=== PATIENT | male | born 1955 | race Asian ===

== ENCOUNTER 2018-12-26 07:56 | Inpatient (IN) | payer OTHER ==
[~2018-12-26] VITALS: Ht 172.7 cm; Wt 72.8 kg
[2018-12-26 07:59] VITALS: Ht 172.7 cm; Wt 72.8 kg
[2018-12-26 11:04] LABS: BASOPHIL % 0.5 % (0-2); PLATELET COUNT 228 x10^3mcL (130-400); RED CELL DISTRIBUTION WIDTH 13.5 % (11.5-14.5)
[2018-12-26] MEDS ORDERED: METOPROLOL SUCC50 M2 PO (11:47)
[2018-12-26] MEDS ORDERED: LIPI20 PO (11:47)
[2018-12-26] MEDS ORDERED: LOSARTAN POTASS50 M1 PO (11:48)
[2018-12-26] MEDS ORDERED: NITROSTAT0.4 MG SL (11:48)
[2018-12-26 11:53] LABS: CALCIUM 8.2 mg/dL (8.5-10.1); CARBON DIOXIDE 25.6 mmol/L (21-32); CHLORIDE SERUM 106 mmol/L (98-107); CREATININE SERUM 0.9 mg/dL (0.7-1.3); GFR1 > 60 mL/min; GLUCOSE SERUM 204 mg/dL (74-106); POTASSIUM SERUM 4.2 mmol/L (3.5-5.1); SODIUM SERUM 141 mmol/L (136-145)
[2018-12-26 11:58] LABS: ALBUMIN 3.5 g/dL (3.4-5.0); ALKALINE PHOSPHATASE 85 U/L (46-116); ALT/SGPT 21 U/L (16-63); AST/SGOT 12 U/L (15-37); BILIRUBIN TOTAL 0.3 mg/dL (0.20-1.00); TOTAL PROTEIN, SERUM 6.9 g/dL (6.4-8.2)
[2018-12-26 12:20] LABS: T3 TOTAL 1.38 ng/mL
[2018-12-26 12:32] LABS: CHOLESTEROL 167 mg/dL (<200); PHOSPHOROUS 2.7 mg/dL (2.5-4.9)
[2018-12-26 12:35] LABS: CHOLESTEROL/HDL RATIO 6.2; HDL CHOLESTEROL 27 mg/dL (40-60); TRIGLYCERIDES 503 mg/dL (<150)
[2018-12-26 12:42] LABS: FREE T4 0.73 ng/dL (0.76-1.46); FREE THYROXINE INDEX 2.1 ug/dL (1.4-4.5); T4(THYROXINE) 6.9 ug/dL (4.7-13.3)
[2018-12-26 13:30] VITALS: BP 123/76
[2018-12-26 16:38] VITALS: BP 126/86
[2018-12-26 19:45] VITALS: BP 118/87
[2018-12-27 05:07] VITALS: BP 114/69
[2018-12-27 06:45] LABS: CALCIUM 8.2 mg/dL (8.5-10.1); CHLORIDE SERUM 109 mmol/L (98-107); CREATININE SERUM 0.9 mg/dL (0.7-1.3); GFR1 > 60 mL/min; GLUCOSE SERUM 134 mg/dL (74-106); MAGNESIUM 2.1 mg/dL (1.8-2.4); PHOSPHOROUS 3.9 mg/dL (2.5-4.9); POTASSIUM SERUM 4.1 mmol/L (3.5-5.1); SODIUM SERUM 144 mmol/L (136-145)
[2018-12-27 07:08] LABS: BASOPHIL % 0.4 % (0-2); PLATELET COUNT 219 x10^3mcL (130-400)
[2018-12-27 09:23] VITALS: BP 138/78
[2018-12-27 13:53] VITALS: BP 123/80
[2018-12-27 16:32] VITALS: BP 124/82
[2018-12-27 19:15] VITALS: BP 119/72
[2018-12-28 05:19] VITALS: BP 119/73
[2018-12-28 06:19] LABS: BASOPHIL % 0.6 % (0-2); PLATELET COUNT 234 x10^3mcL (130-400); RED CELL DISTRIBUTION WIDTH 13.4 % (11.5-14.5)
[2018-12-28 06:42] LABS: CALCIUM 7.9 mg/dL (8.5-10.1); CARBON DIOXIDE 28.8 mmol/L (21-32); CHLORIDE SERUM 108 mmol/L (98-107); GFR1 > 60 mL/min; GLUCOSE SERUM 115 mg/dL (74-106); MAGNESIUM 2.1 mg/dL (1.8-2.4); PHOSPHOROUS 3.3 mg/dL (2.5-4.9); POTASSIUM SERUM 4.2 mmol/L (3.5-5.1); SODIUM SERUM 144 mmol/L (136-145)
[2018-12-28 09:01] VITALS: BP 123/73
[2018-12-28 13:09] VITALS: BP 121/78
[2018-12-28 17:47] VITALS: BP 137/86
[2018-12-28 18:46] LABS: AMPHETAMINE QUAL UR NONE DETECTED (See below)
[2018-12-28 20:23] VITALS: BP 115/77
[2018-12-29 06:16] VITALS: BP 124/80
[2018-12-29 06:24] LABS: BASOPHIL % 0.5 % (0-2); PLATELET COUNT 228 x10^3mcL (130-400); RED CELL DISTRIBUTION WIDTH 13.7 % (11.5-14.5)
[2018-12-29 06:56] LABS: CALCIUM 8.2 mg/dL (8.5-10.1); CARBON DIOXIDE 30.6 mmol/L (21-32); CHLORIDE SERUM 106 mmol/L (98-107); GFR1 > 60 mL/min; GLUCOSE SERUM 111 mg/dL (74-106); POTASSIUM SERUM 4.4 mmol/L (3.5-5.1); SODIUM SERUM 144 mmol/L (136-145)
[2018-12-29 10:19] VITALS: BP 144/86
[2018-12-29 12:14] VITALS: BP 119/83
[2018-12-29] MEDS ORDERED: MECLIZINE HCL12.5 MG PO (12:21)
[2018-12-29] MEDS ORDERED: ECO81 PO (12:34)
[2018-12-29 14:20] VITALS: BP 119/83
== END 2018-12-29 16:14 | disposition home or self-care (01) | DRG 74 ==
LOC: ED 07:56 → DU 11:06
PROVIDERS: Emergency Medicine; ADMIT Internal Medicine
DX: G90.8 Other disorders of autonomic nervous system (principal); I10 Essential (primary) hypertension; E78.00 Pure hypercholesterolemia, unspecified; F17.210 Nicotine dependence, cigarettes, uncomplicated; E11.65 Type 2 diabetes mellitus with hyperglycemia; E83.51 Hypocalcemia; E78.5 Hyperlipidemia, unspecified
CPT/HCPCS: 82962; 83880; 84439; 97116-GP; A9577; G0378; J7030; J8597; Q0092